=== PATIENT | female | born 1975 | race Caucasian/White ===

== ENCOUNTER 2017-01-26 22:53 | Emergency (ER) | payer SELFPAY ==
[~2017-01-26] VITALS: Ht 157.5 cm; Wt 79.4 kg
--- NOTE | 2017-01-26 23:23 | PHYS DOC ---
Adult General Chief Complaint Chief Complaint: ABDOMINAL PAIN HPI HPI Patient is a 41 year old F who presents with left upper quadrant pain for the past 3 days. Patient states she's had worsening left lower quadrant pain with associated nausea and vomiting and no fevers. Patient issues a history of splenic infarcts and this feels similar to those. Patient denies any diarrhea. Patient denies a chest pain or shortness of breath. Patient denies any dysuria. Patient has no other complaints. Review of Systems Review of Systems GEN: Denies fevers, chills, sweats HEENT: Denies blurred vision, sore throat CV: Denies chest pain RESP: Denies shortness of air, cough GI: Left upper quadrant abdominal pain with nausea and vomiting NEURO: Denies confusion, dizziness MSK: Denies weakness, joint pain/swelling Physical Exam Physical Exam GEN.: No apparent distress. Alert and oriented. HEENT: Head is normocephalic, atraumatic NECK: Supple. LUNGS: CTAB. HEART: RRR, S1, S2 present. Peripheral pulses intact ABDOMEN: Soft, left upper quadrant tenderness palpation. Positive bowel sounds. EXTREMITIES: Without any cyanosis. NEUROLOGIC: Normal speech, normal tone PSYCHIATRIC: Normal affect, normal mood. SKIN: No ulcerations Current Patient Data Lab Results Laboratory Tests Test 01/26/17 23:45 01/27/17 00:25 White Blood Count 18.6 x10^3/uL Red Blood Count 4.82 x10^6/uL Hemoglobin 13.1 g/dL Hematocrit 40.2 % Mean Corpuscular Volume 83 fL Mean Corpuscular Hemoglobin 27 pg Mean Corpuscular Hemoglobin Concent 33 g/dL Red Cell Distribution Width 14.4 % Platelet Count 239 x10^3/uL Neutrophils (%) (Auto) 69 % Lymphocytes (%) (Auto) 22 % Monocytes (%) (Auto) 7 % Eosinophils (%) (Auto) 1 % Basophils (%) (Auto) 1 % Neutrophils # (Auto) 12.8 x10^3uL Lymphocytes # (Auto) 4.0 x10^3/uL Monocytes # (Auto) 1.3 x10^3/uL Eosinophils # (Auto) 0.3 x10^3/uL Basophils # (Auto) 0.2 x10^3/uL Segmented Neutrophils % 70 % Band Neutrophils % 1 % Lymphocytes % 18 % Monocytes % 8 % Eosinophils % 3 % Hypersegmented Neutrophils Present Platelet Estimate Adequate Giant Platelets Occ Sodium Level 140 mmol/L Potassium Level 3.8 mmol/L Chloride Level 104 mmol/L Carbon Dioxide Level 26 mmol/L Anion Gap 10 Blood Urea Nitrogen 12 mg/dL Creatinine 1.1 mg/dL Estimated GFR (Cockcroft-Gault) 54.5 BUN/Creatinine Ratio 11 Glucose Level 164 mg/dL Lactic Acid Level 0.9 mmol/L Calcium Level 8.6 mg/dL Total Bilirubin 0.7 mg/dL Aspartate Amino Transf (AST/SGOT) 15 U/L Alanine Aminotransferase (ALT/SGPT) 21 U/L Alkaline Phosphatase 86 U/L Total Protein 7.3 g/dL Albumin 3.2 g/dL Albumin/Globulin Ratio 0.8 Current Medications Medications (Trade) Dose Ordered Sig/Bebeto Route PRN Reason Start Time Stop Time Status Last Admin Dose Admin Ondansetron HCl (Zofran Odt) 4 mg 1X ONCE PO 01/26/17 23:55 01/26/17 23:58 DC 01/27/17 00:19 Sodium Chloride 1,000 ml @ 1,000 mls/hr 1X ONCE IV 01/26/17 23:55 01/27/17 00:54 DC 01/27/17 00:19 Fentanyl Citrate (Fentanyl 2ml Vial) 50 mcg 1X ONCE IV 01/26/17 23:55 01/26/17 23:58 DC 01/27/17 00:19 Iohexol (Omnipaque 300 Mg/ml) 75 ml 1X ONCE IV 01/26/17 23:55 01/26/17 23:58 DC 01/27/17 01:24 Info (Do NOT chart on this entry -- for MONITORING) 1 each PRN DAILY PRN MC SEE COMMENTS 01/27/17 00:00 01/29/17 00:00 EKG EKG [] Radiology/Procedures Radiology/Procedures CT abd and pelvis: IMPRESSION: Thrombosis in the splenic and portal veins. Wedge-shaped decreased density in the liver. Heterogeneous density in the spleen. The appearance suggests infarcts in the spleen and liver. Mesenteric edema centrally around the splenic and portal veins.[] Course & Med Decision Making Course & Med Decision Making Pertinent Labs and Imaging studies reviewed. (See chart for details) ED course: Patient was seen and examined emergency room CBC, CMP, lipase, UA, urine , CT scan abdomen pelvis were ordered 0351: Updated patient on CT findings and she would like to go to 0355: transfer team contacted [phone]: Discussed CC/HP/PMH with Dr. Matta and recommends admit to the ER and hold a heparin drip [] Dragon Disclaimer Dragon Disclaimer This chart was dictated in whole or in part using Voice Recognition software in a busy, high-work load, and often noisy Emergency Department environment. It may contain unintended and wholly unrecognized errors or omissions. Departure Departure: Impression: Primary Impression: Splenic infarct Additional Impressions: Hepatic infarction Abdominal pain Disposition: 02 XFER SHT-TRM HOSP (, Dr. Matta) Condition: STABLE Problem Qualifiers Additional Impressions: Abdominal pain Abdominal location: generalized Qualified Codes: R10.84 - Generalized abdominal pain ALIA MOTA DO Jan 26, 2017 23:23
[2017-01-26] MEDS ORDERED: IV NORMAL SALINE 1,000ML 1,000 ML IV ONE (23:55)
[2017-01-26] MEDS ORDERED: IOHEXOL 300 MG/ML 75 ML VIAL. IV ONE (23:55)
[2017-01-26] MEDS ORDERED: ONDANSETRON ODT 4 MG TAB.RAPDIS PO ONE (23:55)
[2017-01-26] MEDS ORDERED: fentaNYL PF 100 MCG/2 ML VIAL IV ONE (23:55)
[2017-01-27] MEDS ORDERED: CONTRAST GIVEN MC PRN
[2017-01-27 00:12] LABS: BASO # 0.2 x10^3/uL (0.0-0.2); BASO % 1 % (0-3); EOS # 0.3 x10^3/uL (0.0-0.7); EOS % 1 % (0-3); HEMATOCRIT 40.2 % (36.0-47.0); HEMOGLOBIN 13.1 g/dL (12.0-15.5); LYMPH % 22 % (24-48); MEAN CORPUSCULAR HEMOGLOBIN 27 pg (25-35); MEAN CORPUSCULAR HGB CONC 33 g/dL (31-37); MEAN CORPUSCULAR VOLUME 83 fL (79-100); MONO # 1.3 x10^3/uL (0.0-1.1); MONO % 7 % (0-9); NEUT # 12.8 x10^3uL (1.8-7.7); NEUT % 69 % (31-73); PLATELET COUNT 239 x10^3/uL (140-400); RED BLOOD COUNT 4.82 x10^6/uL (3.50-5.40); RED CELL DISTRIBUTION WIDTH 14.4 % (11.5-14.5); WHITE BLOOD COUNT 18.6 x10^3/uL (4.0-11.0)
[2017-01-27 00:58] LABS: % BANDS 1 % (0-9); % EOS 3 % (0-5); % LYMPHS 18 % (24-48); % MONOS 8 % (0-10); % SEGS 70 % (35-66)
[2017-01-27 00:59] LABS: HYPERSEGS PRESENT; PLT ESTIMATE ADEQUATE (ADEQUATE)
[2017-01-27 01:15] LABS: ALBUMIN 3.2 g/dL (3.4-5.0); ALBUMIN/GLOBULIN RATIO 0.8 (1.0-1.7); CALCIUM 8.6 mg/dL (8.5-10.1); CREATININE 1.1 mg/dL (0.6-1.0); GFR 54.5; POTASSIUM 3.8 mmol/L (3.5-5.1); TOTAL BILIRUBIN 0.7 mg/dL (0.2-1.0); TOTAL PROTEIN 7.3 g/dL (6.4-8.2)
[2017-01-27 02:09] LABS: BILIRUBIN,URINE NEG (NEG); CLARITY,URINE HAZY; COLOR,URINE YELLOW; GLUCOSE,URINE NEG (NEG)
[2017-01-27 02:10] LABS: BACTERIA,URINE MOD /HPF (0-FEW); NITRITE,URINE NEG (NEG); SQUAMOUS EPITHELIAL CELL,UR FEW /LPF; UROBILINOGEN,URINE 1 mg/dL (0.2 mg/dL)
--- NOTE | 2017-01-27 03:35 | RAD ---
CT abdomen and pelvis with contrast: Reason for examination: Right-sided abdominal pain with nausea and vomiting. History of splenic infarct, cholecystectomy, tubal ligation and left nephrectomy. Helical images were obtained through the abdomen and pelvis with intravenous administration of 75 cc Omnipaque 300. Reconstruction was performed in sagittal and coronal planes. Exposure: One or more of the following individualized dose reduction techniques were utilized for this examination: 1. Automated exposure control 2. Adjustment of the mA and/or kV according to patient size 3. Use of iterative reconstruction technique. The lung bases are clear. The heart size is normal with no pericardial effusion evident. The gallbladder appears be surgically absent. The liver shows a large subtle areas of decreased density in wedge distribution in the right lobe. Partial hepatic infarct is suspected. The spleen shows heterogeneous density suspicious of splenic infarcts cannot be excluded. The left kidney is surgically absent. The right kidney shows no mass, renal calculus, hydronephrosis or evidence of obstructive uropathy. The abdominal aorta, celiac artery and superior mesenteric arteries appear to show normal blood flow. There does however appear to be thrombosis in the splenic vein and portal vein. The splenic artery is not well visualized. There is a large amount of mesenteric edema around the superior mesenteric artery and vein centrally. The intestinal tract shows no abnormally dilated loops of bowel or thickened bowel ramirez. There is no evidence of diverticulitis. No abnormality seen at the bladder, uterus or ovaries. No acute bony abnormalities are seen. IMPRESSION: Thrombosis in the splenic and portal veins. Wedge-shaped decreased density in the liver. Heterogeneous density in the spleen. The appearance suggests infarcts in the spleen and liver. Mesenteric edema centrally around the splenic and portal veins. Electronically signed by: Yarelis Godinez MD (01/27/2017 3:32 AM) [facility]
[2017-01-27] MEDS ORDERED: HYDROmorphone PF 1 MG/ML DISP.SYRIN IV ONE (04:45)
[2017-01-27 05:00] VITALS: BP 125/73
== END 2017-01-27 05:10 | disposition short-term general hospital (02) ==
LOC: ER 22:53
DX: D73.5 Infarction of spleen (principal); K76.3 Infarction of liver
CPT/HCPCS: 36415; 74177; 80053; 81001; 83605; 85007; 85027; 87086; 96361; 96374; 96375; 99285; J1170; J3010; Q0162; Q9967; J7030